=== PATIENT | female | born 1985 | race Caucasian/White ===

== ENCOUNTER 2020-02-25 05:01 | Inpatient (IN) | payer OTHER, SELFPAY ==
[2020-02-25] VITALS (52 sets, daily range): BP systolic 110–143; BP diastolic 60–99; PULSE 72–108; RESP 14–16; TEMP 36.4–37; O2SAT 77–100; BMI 28.2
--- NOTE | 2020-02-25 05:25 | LDADM ---
This patient, Theresa Faustin, was admitted to Labor/Delivery/Recovery 106 on 02/25/20 at 05:01. Plans for labor, pain management and were discussed with patient. Patient/family oriented to hospital policies and general routines including ID bracelet, bed and alarms, visiting hours, pain management, procedures, bathroom and other care routines, personal items, smoking policy, room service/diet and guest tray routines, security routines, and visiting hours. Patient/Family are encouraged to report perceived risks to care and to ask questions if they do not understand what they are told or what they should do. See OBIX for further documentation.
[2020-02-25] MEDS: LACTATED RINGERS 1,000 ML 125 ML IV CONT ×2 (05:47→09:42)
[2020-02-25] MEDS: OXYTOCIN 30 UNITS/NS 500 ML 30 UNITS/500 ML BAG IV CONT (05:47)
[2020-02-25 05:52] LABS: Basophils Percent Auto 0.2 % (0.2-1.2); Eosinophils Absolute Auto 0.2 K/mm3 (0-0.3); Eosinophils Percent Auto 2.7 % (0-4.4); Hemoglobin 12.7 g/dL (12.0-15.0); Immature Granulocyte Absolute 0.04 K/mm3 (0.00-0.031); Immature Granulocyte Percent A 0.5 % (0-0.5); Lymphocytes Absolute Auto 2.46 K/mm3 (0.9-3.2); Lymphocytes Percent Auto 27.9 % (18.3-44.2); Mean Corpuscular HGB Conc 33.4 g/dl (32-36); Mean Corpuscular Hemoglobin 28.9 pg (26-34); Mean Corpuscular Volume 86.6 fl (80-100); Mean Platelet Volume 11.1 fl (7.4-10.4); Monocytes Absolute Auto 0.9 K/mm3 (0.1-0.6); Monocytes Percent Auto 9.7 % (2.6-8.5); Neutrophils Absolute Auto 5.2 K/mm3 (1.3-6.7); Platelet Count Result 212 k/mm3 (150-375); Red Blood Count 4.39 M/mm3 (4.2-5.4); Red Cell Distribution Width 16.8 % (11.5-14.5); White Blood Count 8.8 K/mm3 (4.5-10.0)
--- NOTE | 2020-02-25 06:10 | P.PNAN_ITS ---
Anes - Eval Pre Procedure Procedure: labor epidural Date/Time: 02/25/20 06:10 Surgeon: marline Preop Diagnosis: ABD pain with contractions Pre Op Diagnosis: IOL Patient Data Age: 34 Gender: F Height: 5 ft 2 in Weight: 70 kg Last Vital Signs Pulse 81 02/25/20 06:00 BP 122/94 H 02/25/20 06:00 Allergies Allergy/AdvReac Type Severity Reaction Status Date / Time Sulfa (Sulfonamide Allergy Unknown Hives Verified 02/02/20 11:34 Antibiotics) Home Medications Medication Instructions Recorded Confirmed Type PNV cmb#95-ferrous fumarate-FA 1 tablet PO DAILY 02/02/20 02/02/20 History [] cetirizine [Zyrtec] 10 mg PO DAILY 02/02/20 02/02/20 History ferrous sulfate 325 mg PO DAILY 02/02/20 02/02/20 History sertraline [Zoloft] 50 mg PO DAILY 02/02/20 02/02/20 History Laboratory Tests 02/25/20 02/25/20 05:37 05:37 WBC 8.8 K/mm3 K/mm3 (4.5-10.0) RBC 4.39 M/mm3 M/mm3 (4.2-5.4) Hgb 12.7 g/dL g/dL (12.0-15.0) Hct 38.0 % % (37.0-47.0) MCV 86.6 fl fl (80-100) MCH 28.9 pg pg (26-34) MCHC 33.4 g/dl g/dl (32-36) RDW 16.8 % H % (11.5-14.5) Plt Count 212 k/mm3 k/mm3 (150-375) MPV 11.1 fl H fl (7.4-10.4) Immature Gran % (Auto) 0.5 % % (0-0.5) Neut % (Auto) 59.0 % % (45.5-73.1) Lymph % (Auto) 27.9 % % (18.3-44.2) [place] % (Auto) 9.7 % H % (2.6-8.5) Eos % (Auto) 2.7 % % (0-4.4) Baso % (Auto) 0.2 % % (0.2-1.2) Lymph # (Auto) 2.46 K/mm3 K/mm3 (0.9-3.2) [place] # (Auto) 0.9 K/mm3 H K/mm3 (0.1-0.6) Eos # (Auto) 0.2 K/mm3 K/mm3 (0-0.3) Baso # (Auto) 0.0 K/mm3 K/mm3 (0.0-0.1) Abs Immat Gran (auto) 0.04 K/mm3 H K/mm3 (0.00-0.031) Absolute Neuts (auto) 5.2 K/mm3 K/mm3 (1.3-6.7) Absolute Nucleated RBC 0.0 K/mm3 K/mm3 (0.0-0.012) Nucleated RBC % 0.0 % % (0.0-0.2) RPR Pending Patient hx anesthesia problems: none Family hx anesthesia problems: none PMFSH Past Medical History Medical History (Updated 02/25/20 @ 06:12 by Julian Booth CRNA) Anemia Anxiety Asthma Family History Family History Mother Family history of thyroid disease Hypertension Father Hypertension Family history of gastrointestinal disorder Social History Social History Smoking status: Never smoker Second hand tobacco smoke exposure: No Smoking end date: 10/07/12 Alcohol intake: current Substance use: never Spiritual care concerns: No Exam Day of Procedure 02/25/20 06:10 Patient weight: normal Airway: Mallampati scale class II Neurological: alert and oriented
[2020-02-25 06:43] LABS: Rapid Plasma Reagin Non-Reactive (NonReactive)
--- NOTE | 2020-02-25 08:13 | WPDOBADMIT ---
Obstetrics - Admit Note Admission Note: record reviewed. Additions to the history and/or subsequent changes in the physical findings follow. 34 y/o at 39 2/7 weeks with favorable cervix, here desiring induction of labor. GBS neg. essentially uncomplicated. AVSS NST reactive TOCO: contractions irregularly ABD soft, nontender, gravid, vertex EXT nontender Cervix 4/50/-2. AROM with clear fluid. Vertex. A: IUP at 39 2/7 weeks here for induction. P: Oxytocin. Anticipate .
--- NOTE | 2020-02-25 11:48 | PM.OBPRVD ---
OB - Delivery Note Procedure Delivery date: 02/25/20 Procedure: Induction of labor with Induction method: AROM and per pitocin protocol Delivery monitor: external FHT and external uterine Route of delivery: Laceration description: Perineal - 2nd Degree Delivery repair: vicryl (3-0) Specimen: Yes (cord blood) Estimated blood loss (mL): 210 Anesthesia type: Epidural Disposition: PACU Complications: None Narrative: 34 y/o at 39 2/7 weeks gestation who presented to the hospital for induction of labor. Oxytocin was administered intravenously. Amniotomy was performed with return of clear fluid. She received an epidural for pain control. Her labor progressed and her cervix dilated completely. She pushed with good effort and delivered the infant's head to the perineum. A loose nuchal cord was splinted and the body delivered. The cord was reduced. The nose and mouth were bulb suctioned. After a delay, the cord was clamped and cut. The infant was handed off the field. Cord blood was collected. The placenta delivered spontaneously and was grossly normal in appearance. The usual 3 vessel cord was noted. A second degree midline perineal laceration was sustained. This was reapproximated using 3 0 Vicryl in the usual layered fashion. A right-sided periurethral laceration was repaired with two interrupted sutures of the same material. Excellent hemostasis resulted as did excellent reapproximation of the normal anatomy. Needle and instrument counts were correct. The patient was taken to recovery room in stable condition. The went to the nursery in stable condition. I was present and scrubbed for the entire delivery. Baby Date of : 02/25/20 Time of : 11:16 Weeks of gestation at delivery: 39 Infant gender: Male presentation: vertex position: Left Occiput Anterior Placenta delivery description: Spontaneous and Normal Configuration cord vessel description: 3 Vessels and Nuchal Cord score one minute: 9 score five minutes: 9
--- NOTE | 2020-02-25 11:52 | PM.OBDSVD ---
DS: Admitting Diagnosis Admitting Diagnosis Admitting Diagnosis: IUP at 39 2/7 weeks Favorable cervix <Joni Holland MD - Last Filed: 03/14/20 12:27> DS: Discharge Diagnosis Discharge Diagnosis (1) (normal spontaneous vaginal delivery): Code(s): O80 - Encounter for full-term uncomplicated delivery <Joni Holland MD - Last Filed: 03/14/20 12:27> Status: Acute <Joni Holland MD - Last Filed: 03/14/20 12:27> OB - DS: Summary OB Procedures : None <Rashid Benoit MD - Last Filed: 02/27/20 06:45> OB Procedures Intrapartum: Spontaneous Vag Delivery <Rashid Benoit MD - Last Filed: 02/27/20 06:45> OB Procedures: : None <Rashid Benoit MD - Last Filed: 02/27/20 06:45> Time Spent with Patient Time attestation: Total time spent providing and/or coordinating discharge services: <Joni Holland MD - Last Filed: 03/14/20 12:27> DS: Data Data Completed and Pending Labs on day of discharge: Labs from last 24 hours 02/25/20 02/25/20 02/25/20 05:37 05:37 05:37 WBC 8.8 RBC 4.39 Hgb 12.7 Hct 38.0 MCV 86.6 MCH 28.9 MCHC 33.4 RDW 16.8 H Plt Count 212 MPV 11.1 H Immature Gran % (Auto) 0.5 Neut % (Auto) 59.0 Lymph % (Auto) 27.9 [place] % (Auto) 9.7 H Eos % (Auto) 2.7 Baso % (Auto) 0.2 Lymph # (Auto) 2.46 [place] # (Auto) 0.9 H Eos # (Auto) 0.2 Baso # (Auto) 0.0 Abs Immat Gran (auto) 0.04 H Absolute Neuts (auto) 5.2 Absolute Nucleated RBC 0.0 Nucleated RBC % 0.0 RPR Non-reactive Blood Type O Positive Antibody Screen Negative <Joni Holland MD - Last Filed: 03/14/20 12:27> Discharge Plan Discharge Attending physician on discharge: Joni Holland <Joni Holland MD - Last Filed: 03/14/20 12:27> Joni Holland <Rashid Benoit MD - Last Filed: 02/27/20 06:45> Discharging Clinician: Joni Holland <Joni Holland MD - Last Filed: 03/14/20 12:27> Joni Holland <Rashid Benoit MD - Last Filed: 02/27/20 06:45> Patient Disposition: Home, Self-Care <Joni Holland MD - Last Filed: 03/14/20 12:27> Activity: pelvic rest <Joni Holland MD - Last Filed: 03/14/20 12:27> pelvic rest <Rashid Benoit MD - Last Filed: 02/27/20 06:45> Diet: regular <Joni Holland MD - Last Filed: 03/14/20 12:27> regular <Rashid Benoit MD - Last Filed: 02/27/20 06:45> Discharge Instructions: Call or return if temperature above 100.4? F, increased abdominal pain, increased vaginal bleeding or any new problems. Education: Mom and Baby Guide Given to: Mother Follow-Up: Call your delivering provider's office for an appointment to be seen in: 4-6 weeks Mom and baby should come to the [facility] for the follow-up appointment. Appointment Date/Time: February 29, 2020 at 8:00 am What to expect at your follow-up visit: Physical Assessment Call [phone] if you are unable to keep your appointment time. BREAST CARE: 1. Wear a snug supportive bra. 2. For engorgement discomfort: Breast Feeding: A. Apply warm moist washcloths B. Express milk as needed to relieve engorgement C. Wear loose clothing 3. For sore nipples: A. Identify correct latch-on B. Apply warm moist washcloths before and after nursing C. Air dry nipples after nursing D. May apply Lansinoh cream to nipples EPISIOTOMY/PERINEAL CARE: 1. Until bleeding stops, use your miguel bottle after urinating 2. Change your pad frequently throughout the day 3. You may take sitz baths several times a day (fill your bathtub with warm water and soak for 20 minutes.) Do NOT bathe in the water 4. No tub baths until seen by your physician - You may shower ACTIVITY: 1. Rest as much as possible. 2. Do not exercise or li
--- NOTE | 2020-02-25 16:03 | PC.NURSE ---
Addendum entered by Julian Martinez RN 02/25/20 16:05: Actual time of admission was 1500 Original Note: PT arrived on unit via wheelchair accompanied by . PT taken to room 287 and oriented to room and surroundings. PT introductions made and plan of care discussed per post , pain management, breast feeding, daily care activities. Welcome packet reviewed and discussed. PT verbalized understanding of such care.
[2020-02-25] MEDS: DOCUSATE SODIUM 100 MG CAPSULE PO (17:32)
[2020-02-25] MEDS: IBUPROFEN 600 MG TABLET PO (17:32)
[2020-02-25] MEDS: LANOLIN (LANSINOH) 7.5 GM CREAM 1 APPLIC TOPICAL (17:33)
[2020-02-25] MEDS: WITCH HAZEL 40 PADS 1 PAD TOPICAL (17:34)
[2020-02-25] MEDS: DIBUCAINE 1% OINTMENT 30 GM TUBE 1 APPLIC TOPICAL (17:35)
[2020-02-25] MEDS: BENZOCAINE 20% AER SPR (*SP) 56 GM CAN 1 SPRAY TOPICAL (17:35)
[2020-02-26] MEDS: IBUPROFEN 600 MG TABLET PO ×3 (00:41→16:45)
[2020-02-26] MEDS: SERTRALINE HCL 50 MG TABLET PO (00:41)
[2020-02-26 04:55] LABS: Hematocrit 33.2 % (37.0-47.0); Hemoglobin 11.3 g/dL (12.0-15.0)
--- NOTE | 2020-02-26 07:30 | WPDANLDPN2 ---
Anes-Prog Note L&D Date/Time: 02/26/20 07:30 Comfortable throughout: labor and delivery Neuraxial method: epidural Epidural/Spinal procedure site: clean & non-tender Neuro status: Neuro function grossly intact. Cardiovascular status: normal Respiratory status: normal Airway patency: baseline Mental status: baseline Post-Op hydration status: normal Vital Signs: Last Vital Signs Temp 36.4 C 02/25/20 18:45 Pulse 82 02/25/20 18:45 Resp 14 02/25/20 18:45 BP 123/93 H 02/25/20 18:45 Pulse Ox 100 02/25/20 18:45 I/O: Intake & Output 02/25/20 02/25/20 02/26/20 15:59 23:59 07:59 Intake Total 1000 500 Output Total 100 Balance 900 500 Post-procedural complaints: none Patient feedback: Patient satisfied with anesthetic care.
--- NOTE | 2020-02-26 07:54 | PM.OBPNVD ---
OB - PN: Subj Subjective Date/time seen: 02/26/20 07:54 Patient comments: no complaints, pain well controlled and tolerating diet [place] feeding status: exclusively breast feeding Narrative: patient doing well this AM. No complaints. Pain is well controlled. She reports minimal bleeding. She is ambulating and voiding without difficulty. She is tolerating PO. She denies N/V, fever, chills. OB - PN: Obj Data Labs CBC & Chem 7: 02/26/20 04:14 Labs: Laboratory Results - last 24 hr 02/26/20 04:14 Hgb 11.3 L Hct 33.2 L OB - PN A/P Plan day: 1 Plan: routine care Comments: patient doing well H/H stable plan for infant circumcision today continue routine care Time Spent With Patient Time: Total time spent is greater than 50% in coordination of care (as documented) at patient's floor/unit and/or counseling patient: Time with patient: less than 15 minutes Review of Systems Review of Systems: All systems reviewed & are unremarkable except as noted in HPI and below Exam Const: General: comfortable and no acute distress Resp: Effort & Inspection: normal respiratory effort Cardio: Rate: regular rate GI: GI Palp: Yes Soft to palpation and No Tenderness to palpation present (GI) Auscultation: normal bowel sounds Other: fundus firm and below umbilicus. Psych: Affect: normal affect
[2020-02-26 08:15] VITALS: BP 131/88; PULSE 77; RESP 16; TEMP 36.9; O2SAT 100
[2020-02-26] MEDS: DOCUSATE SODIUM 100 MG CAPSULE PO ×2 (09:19→16:45)
[2020-02-26] MEDS: MULTIVIT/MIN/PREN/FOL AC/IRON TABLET 1 TAB PO (09:19)
--- NOTE | 2020-02-26 16:20 | PC.NURSE ---
Mother is able to independently latch infant with appropriate positioning/alignment. She denies any nipple discomfort, is feeding as required and waking to feed if needed. Mother reports concerns is sleepy and need to be awoken for feedings, reviewed this is normal feeding pattern. Advised to wake every three hours and stimulate during feedings to keep awake and nursing. is currently meeting outcomes for weight, output, jaundice and feeding frequencies. Reviewed infant feeding cues, frequencies, duration of feedings, feeding elimination flow sheet, and signs of adequate intake. Demonstrated stimulation techniques to wake infant for feeding. Reviewed transition to breast milk, signs of adequate intake, and engorgement/relief. Nipple care reviewed. Instructed mother to call out for RN assistance if she is unable to latch infant for feeding or she has discomfort with nursing. Instructed feeding should be initiated three hours from start of last feeding or if feeding cues are noted before. Mother voiced understanding of information shared.
[2020-02-26 21:20] VITALS: BP 118/83; PULSE 80; RESP 13; TEMP 36.4; O2SAT 99
[2020-02-27] MEDS: ACETAMINOPHEN 325 MG TABLET 650 MG PO (03:40)
[2020-02-27] MEDS: SERTRALINE HCL 50 MG TABLET PO (03:46)
[2020-02-27 09:15] VITALS: BP 125/89; PULSE 100; RESP 18; TEMP 36.9
[2020-02-27] MEDS: MULTIVIT/MIN/PREN/FOL AC/IRON TABLET 1 TAB PO (10:43)
[2020-02-29 08:33] VITALS: BP 122/92; PULSE 88; RESP 22
== END 2020-02-27 11:46 | disposition home or self-care (01) | DRG 807 ==
LOC: ANHLDR 11:53 → ANHOB2 02-27 11:11 → ANHLDR 03-02 07:51 → ANHOB2 03-02 07:51
PROVIDERS: Admitting Provider Obstetrics & Gynecology; PCP Internal Medicine; Visit Provider Student in an Organized Health Care Education/Training Program
DX: O71.82 Other specified trauma to perineum and vulva (principal); Z37.0 Single live birth; Z3A.39 39 weeks gestation of pregnancy
CPT/HCPCS: 36415; 85014; 85018; 85025; 86592; 86850; 86900; 86901; A9270; J2590; J2795; J3010; J7120

== ENCOUNTER 2020-03-02 11:59 | Emergency (ER) | payer OTHER, SELFPAY ==
[2020-03-02 12:04] VITALS: BP 137/93; PULSE 126; RESP 16; TEMP 38.2; O2SAT 98
--- NOTE | 2020-03-02 12:13 | ED.GENADULT ---
HPI - General Adult General Chief complaint: [employer] Stated complaint: post delivery/back pain/fever Time Seen by Provider: 03/02/20 12:12 Source: patient Mode of arrival: ambulatory Limitations: no limitations History of Present Illness HPI narrative: Patient is a 34-year-old female G2, P2 who had a vaginal delivery December 25 of a healthy baby boy who presents for evaluation of fever. Patient reports fever of 101 Fahrenheit at home, general malaise. Patient reports she is having normal amount of bloody discharge from the vagina, some intermittent cramping of the abdominal region and lower abdomen. Patient reports some mild dysuria and back pain. No rashes. No lower extremity swelling. No rhinorrhea, cough or shortness of breath. Related Data Home Medications Medication Instructions Recorded Confirmed [id number] fumarate-FA tablet PO DAILY 03/02/20 [] fluticasone propionate INTRANASAL DAILY 03/02/20 sertraline mg DAILY 03/02/20 Allergies Allergy/AdvReac Type Severity Reaction Status Date / Time Sulfa (Sulfonamide Allergy Intermediate Hives / Verified 03/02/20 12:09 Antibiotics) [place] Review of Systems Review of Systems: Narrative: CONSTITUTIONAL: Reports fever and chills EYES: Denies visual changes, redness, or discharge. ENT: Denies rhinorrhea, congestion, sore throat, or otalgia. CARDIOVASCULAR: Denies chest pain, palpitations, or edema. RESPIRATORY: Denies cough or dyspnea. GASTROINTESTINAL: Reports lower abdominal pain, denies nausea, vomiting or diarrhea GENITOURINARY: Reports dysuria and vaginal bleeding SKIN: Denies rash or itching. MUSCULOSKELETAL: Reports mild back pain, reports myalgias NEUROLOGIC: Denies headache, numbness, or weakness. . [facility] Past Medical History Medical History (Updated 03/02/20 @ 13:43 by Estella Boswell MD) Anxiety Asthma Depression Surgical History Surgical History (Updated 03/02/20 @ 12:30 by Estella Boswell MD) No pertinent past surgical history Social History Social History (Updated 03/02/20 @ 12:30 by Estella Boswell MD) Smoking status: Former smoker Alcohol intake: never Substance use: never Living arrangements: with family Gender identity (if verbalized by the patient): Female Exam Narrative: Exam Narrative: GENERAL: Awake, alert, conversant, anxious appearing, tearful HEAD: Normocephalic, atraumatic. EYES: PERRLA and EOMI. ENT: Nares clear, no rhinorrhea or epistaxis. Mucous membranes moist. NECK: Supple. CHEST: No respiratory distress, breathing even and non labored HEART: Tachycardic rate, sinus rhythm ABDOMEN:Non distended, mild suprapubic tenderness, fundus is palpable below the umbilicus, no rebound or guarding : Labia majora and minora normal without lesions. Suture sites present at the urethra and perineum, clean/dry/intact. No adnexal tenderness or fullness bilaterally. No mucoid discharge present. EXTREMITIES: Normal range of motion. No edema. SKIN: Warm, dry, no rash. NEURO:No focal deficits. Alert and oriented x3 Course Vital Signs Vital signs: Vital Signs Temperature 38.2 C H 03/02/20 12:04 Pulse Rate 126 H 03/02/20 12:04 Respiratory Rate 16 03/02/20 12:04 Blood Pressure 137/93 H 03/02/20 12:04 Pulse Oximetry 98 03/02/20 12:04 Temperature 37.2 C 03/02/20 13:18 Pulse Rate 126 H 03/02/20 12:04 Respiratory Rate 16 03/02/20 12:04 Blood Pressure 137/93 H 03/02/20 12:04 Pulse Oximetry 98 03/02/20 12:04 Medical Decision Making MDM Narrative Medical decision making narrative: Patient presented for evaluation of fever, dysuria. At the time of initial assessment, ABCs are intact. Vital signs are notable for tachycardia, fever. Patient with concern for sepsis, thus was given IV fluids, antipyretic. Patient is not hypotensive, no sign of severe sepsis or septic shock. Given recent diagnosis, patient may have UTI, pyelonephritis, endometritis. Laboratory re
[2020-03-02] MEDS: SODIUM CHLORIDE 0.9% IV 1,000 ML 999 ML IV CONT (12:20)
[2020-03-02] MEDS: ACETAMINOPHEN 500 MG TABLET 1000 MG PO (12:21)
[2020-03-02 12:37] LABS: Basophils Percent Auto 0.2 % (0.2-1.2); Eosinophils Absolute Auto 0.2 K/mm3 (0-0.3); Eosinophils Percent Auto 1.5 % (0-4.4); Hematocrit 39.5 % (37.0-47.0); Hemoglobin 13.1 g/dL (12.0-15.0); Immature Granulocyte Absolute 0.04 K/mm3 (0.00-0.031); Immature Granulocyte Percent A 0.3 % (0-0.5); Lymphocytes Absolute Auto 0.81 K/mm3 (0.9-3.2); Lymphocytes Percent Auto 6.3 % (18.3-44.2); Mean Corpuscular HGB Conc 33.2 g/dl (32-36); Mean Corpuscular Hemoglobin 29.2 pg (26-34); Mean Platelet Volume 9.7 fl (7.4-10.4); Monocytes Percent Auto 7.4 % (2.6-8.5); Neutrophils Absolute Auto 10.9 K/mm3 (1.3-6.7); Neutrophils Percent Auto 84.3 % (45.5-73.1); Platelet Count Result 276 k/mm3 (150-375); Red Blood Count 4.49 M/mm3 (4.2-5.4); Red Cell Distribution Width 16.6 % (11.5-14.5); White Blood Count 12.9 K/mm3 (4.5-10.0)
[2020-03-02 12:40] LABS: Add Urine Microscopic? YES; Appearance Urine Cloudy (Clear); Bilirubin Urine Negative (Negative); Blood Urine 3+ (Negative); Color Urine Yellow (Yellow); Glucose Urine UA Negative (Negative); Ketones Urine Negative (Negative); Leukocyte Esterase Ur 3+ LEU/UL (Negative); Mucus Urine Rare /lpf; Nitrate Urine Negative (Negative); Protein Urine 1+ mg/dL (Negative); RBC Urine 21-50 /hpf (0-2); Squamous Epithelial Cell Urine Moderate /hpf (Few); Urobilinogen Urine Negative mg/dL (<2.0); WBC Urine >75 /hpf
[2020-03-02 12:52] LABS: Lactic Acid Reflex 0.7 mmol/L (0.7-2.1)
[2020-03-02 13:18] VITALS: TEMP 37.2
[2020-03-02 13:33] LABS: Alanine Aminotransferase 39 U/L (4-35); Albumin Level 3.8 g/dL (3.5-5.1); Alkaline Phosphatase 141 U/L (38-126); Aspartate Amino Transferase 39 U/L (14-36); Bilirubin,Total 0.2 mg/dL (0.2-1.3); Blood Urea Nitrogen 11 mg/dL (7-17); CRP 2.5 mg/dL (<1.0); Calcium 8.4 mg/dL (8.4-10.2); Carbon Dioxide 21 mmol/L (22-30); Chloride 108 mmol/L (98-107); Estimated CRCL calculation 78 ml/min; Estimated Glomerular Filt Rate > 60; Glucose 89 mg/dL (65-105); Sodium 135 mmol/L (137-145)
--- NOTE | 2020-03-02 13:55 | PC.NURSE ---
Breast pump provided due to engorgement. Instructions given on breast pump care and usage, nipple care, and collection and storage of breast milk. Assessed patient for correct flange size, placement and draw. Mother reports she is comfortable with pump use, she just needs to pump due to timing from last feeding. Patient verbalizes and demonstrates understanding of instructions.
[2020-03-02 14:43] VITALS: BP 127/92; PULSE 90; RESP 20; O2SAT 100
== END 2020-03-02 14:45 | disposition home or self-care (01) ==
PROVIDERS: Emergency Provider Emergency Medicine; PCP Internal Medicine
DX: N12 Tubulo-interstitial nephritis, not specified as acute or chronic (principal); F41.9 Anxiety disorder, unspecified; F32.9 Major depressive disorder, single episode, unspecified; J45.909 Unspecified asthma, uncomplicated; Z87.891 Personal history of nicotine dependence
CPT/HCPCS: 36415; 80053; 81001; 83605; 85025; 86140; 87040; 87077; 87086; 87088; 87186; 96361; 96365; 99284; A9270; J0696; J7030

== ENCOUNTER 2021-11-23 13:02 | Outpatient (RCR) | payer OTHER, SELFPAY ==
--- NOTE | ~2021-11-23 | US_ITS ---
EXAMINATION: US OB limited DATE: 11/23/2021 14:03 INDICATION: Hypertension during post dates third trimester . TECHNIQUE: Real-time ultrasound of the pelvis was performed. The interpreting radiologist was not pre sent for the study. COMPARISON: None. FINDINGS: There is a single living fetus in vertex presentation. The placenta is anterior. heart rate is 137 beats per minute (bpm). The amniotic fluid index is 11.1 cm, which is normal (5th%-95%: 7.1-21.4 cm at 40 weeks estimated gestational age). IMPRESSION: 1. Single living fetus in vertex presentation with heart rate of 137 bpm. 2. Normal amniotic fluid index of 11.1 cm. Reviewed, dictated and finalized at location A. IGN [employer]CH[employer] TRADER IMPRESSION: 1. Single living fetus in vertex presentation with heart rate of 137 bpm . 2. Normal amniotic fluid index of 11.1 cm.
[2021-11-23 14:20] VITALS: BP 120/85; PULSE 101
== END 2022-02-12 08:59 | disposition home or self-care (01) ==
LOC: ANHOBOP 13:02
PROVIDERS: PCP Internal Medicine; Visit Provider Obstetrics & Gynecology
DX: O26.893 Other specified pregnancy related conditions, third trimester (principal); R03.0 Elevated blood-pressure reading, without diagnosis of hypertension; Z3A.40 40 weeks gestation of pregnancy
CPT/HCPCS: 59025; 76815

== ENCOUNTER 2021-11-26 02:56 | Inpatient (IN) | payer OTHER, SELFPAY ==
[2021-11-26] VITALS (60 sets, daily range): BP systolic 84–145; BP diastolic 43–106; PULSE 65–104; RESP 16–20; TEMP 36.4–37.1; O2SAT 97–100; BMI 27.4
[2021-11-26] MEDS: LACTATED RINGERS 1,000 ML 999 ML IV CONT ×2 (03:48→05:46)
[2021-11-26 03:50] LABS: Basophils Absolute Auto 0.1 K/mm3 (0.0-0.1); Basophils Percent Auto 0.5 % (0.2-1.2); Eosinophils Absolute Auto 0.3 K/mm3 (0-0.3); Eosinophils Percent Auto 3.5 % (0-4.4); Hematocrit 36.3 % (37.0-47.0); Hemoglobin 11.9 g/dL (12.0-15.0); Immature Granulocyte Absolute 0.04 K/mm3 (0.00-0.031); Immature Granulocyte Percent A 0.4 % (0-0.5); Lymphocytes Absolute Auto 2.34 K/mm3 (0.9-3.2); Mean Corpuscular HGB Conc 32.8 g/dl (32-36); Mean Corpuscular Hemoglobin 29.1 pg (26-34); Mean Corpuscular Volume 88.8 fl (80-100); Monocytes Percent Auto 9.8 % (2.6-8.5); Neutrophils Percent Auto 61.8 % (45.5-73.1); Platelet Count Result 240 k/mm3 (150-375); Red Blood Count 4.09 M/mm3 (4.2-5.4); White Blood Count 9.8 K/mm3 (4.5-10.0)
--- NOTE | 2021-11-26 04:16 | WPDANESEPP ---
Anes - Eval Pre Procedure Procedure: labor epidural Date/Time: 11/26/21 04:16 Surgeon: kodi Preop Diagnosis: pain during labor Pre Op Diagnosis: Contractions Patient Data Age: 36 Gender: F Height: Weight: Last Vital Signs Pulse 73 11/26/21 04:16 BP 113/79 11/26/21 04:16 Allergies Allergy/AdvReac Type Severity Reaction Status Date / Time Sulfa (Sulfonamide Allergy Intermediate Hives Verified 08/25/21 15:58 Antibiotics) Home Medications Medication Instructions Recorded Confirmed Type [id number] fumarate-FA tablet PO DAILY 03/02/20 History [] acetaminophen 500 mg PO Q6H PRN #30 cap 03/02/20 Rx cephalexin [Keflex] 500 mg PO Q8H 10 Days #30 cap 03/02/20 Rx fluticasone propionate INTRANASAL DAILY 03/02/20 History sertraline mg DAILY 03/02/20 History No Home Medications 11/01/20 11/01/20 History Laboratory Tests 11/26/21 11/26/21 11/26/21 03:43 03:43 03:43 WBC 9.8 K/mm3 K/mm3 (4.5-10.0) RBC 4.09 M/mm3 L M/mm3 (4.2-5.4) Hgb 11.9 g/dL L g/dL (12.0-15.0) Hct 36.3 % L % (37.0-47.0) MCV 88.8 fl fl (80-100) MCH 29.1 pg pg (26-34) MCHC 32.8 g/dl g/dl (32-36) RDW 13.0 % % (11.5-14.5) Plt Count 240 k/mm3 k/mm3 (150-375) MPV 10.0 fl fl (7.4-10.4) Immature Gran % (Auto) 0.4 % % (0-0.5) Neut % (Auto) 61.8 % % (45.5-73.1) Lymph % (Auto) 24.0 % % (18.3-44.2) [place] % (Auto) 9.8 % H % (2.6-8.5) Eos % (Auto) 3.5 % % (0-4.4) Baso % (Auto) 0.5 % % (0.2-1.2) Lymph # (Auto) 2.34 K/mm3 K/mm3 (0.9-3.2) [place] # (Auto) 1.0 K/mm3 H K/mm3 (0.1-0.6) Eos # (Auto) 0.3 K/mm3 K/mm3 (0-0.3) Baso # (Auto) 0.1 K/mm3 K/mm3 (0.0-0.1) Abs Immat Gran (auto) 0.04 K/mm3 H K/mm3 (0.00-0.031) Absolute Neuts (auto) 6.0 K/mm3 K/mm3 (1.3-6.7) Absolute Nucleated RBC 0.0 K/mm3 K/mm3 (0.0-0.012) Nucleated RBC % 0.0 % % (0.0-0.2) Sodium Pending Potassium Pending Chloride Pending Carbon Dioxide Pending Anion Gap Pending BUN Pending Creatinine Pending Estim Creat Clear Calc Pending Estimated GFR Pending Glucose Pending Calcium Pending Total Bilirubin Pending AST Pending ALT Pending Alkaline Phosphatase Pending Total Protein Pending Albumin Pending RPR Pending Patient hx anesthesia problems: none Family hx anesthesia problems: none Results Review: All pre-operative results and documents have been reviewed as part of the pre-operative evaluation. [facility] Past Medical History Medical History (Updated 08/25/21 @ 15:58 by Isaiah Mrogan) Anemia Anxiety Anxiety Asthma Asthma Depression Surgical History Surgical History (Updated 08/25/21 @ 15:58 by Isaiah Morgan) No pertinent past surgical history Family History Family History Mother Family history of thyroid disease Hypertension Father Hypertension Family history of gastrointestinal disorder Social History Social History (System 08/25/21 @ 15:58 by Isaiah Morgan) Smoking status: Former smoker Tobacco type: cigarettes Second hand tobacco smoke exposure: No Smoking end date: 10/07/13 Alcohol intake: never Substance use: never Gender identity (if verbalized by the patient): Female Spiritual care concerns: No Exam Day of Procedure 11/26/21 04:16
[2021-11-26] MEDS: ONDANSETRON INJ 4 MG/2 ML VIAL IV PUSH (04:29)
[2021-11-26 04:51] LABS: Alanine Aminotransferase 10 U/L (4-35); Albumin Level 3.1 g/dL (3.5-5.1); Alkaline Phosphatase 148 U/L (38-126); Anion Gap 5 mmol/L (8-16); Aspartate Amino Transferase 21 U/L (14-36); Bilirubin,Total 0.1 mg/dL (0.2-1.3); Blood Urea Nitrogen 7 mg/dL (7-17); Carbon Dioxide 22 mmol/L (22-30); Chloride 106 mmol/L (98-107); Estimated Glomerular Filt Rate > 60; Glucose 88 mg/dL (65-110); Sodium 133 mmol/L (137-145)
[2021-11-26] MEDS: OXYTOCIN 30 UNITS/NS 500 ML 30 UNITS/500 ML BAG IV CONT (05:46)
--- NOTE | 2021-11-26 06:43 | WPDHPUPDATE1 ---
History and Physical Update Update Date/Time: 11/26/21 06:43 36 yo at 41w1d who presents with contractions. Pt has been having regular contractions throughout the night. She denies any vaginal bleeding or leakage of fluid. Her has been complicated by depression/anxiety on celexa. History and Physical has been reviewed, including an updated exam of the patient. There are NO changes in the patient's condition. Risks, benefits, and alternatives have been discussed and questions answered. Patient agrees to proceed with procedure. A/P: 36 yo at 41w1d who presents in labor admit to L&D routine admission orders labs wnl Rh+ GBS neg FHT cat 1 cvx 4cm regular ctx on toco expectant managemetn
--- NOTE | 2021-11-26 06:58 | PM.OBPRVD ---
OB - Delivery Note Procedure Delivery date: 11/26/21 Procedure: Patient pushed for a spontaneous vaginal delivery. The fetus was delivered atraumatically and placed on the maternal abdomen. The cord was clamped and cut after 1 minute of life. The cord was double clamped and cut and a segment of cord was collected for cord gases. Cord blood was collected for blood type and Coomb's testing. The placenta delivered spontaneously and was noted to be intact. The perineum was inspected and there was a 2nd degree perineal laceration. The laceration was repaired with 3-0 vicryl in the usual fashion. The uterus was firm and good hemostasis was noted. The patient and fetus were stable in the delivery room. Induction method: None Delivery augmentation: Pitocin Delivery monitor: External FHT Route of delivery: Episiotomy description: None Laceration Description: Perineal - 2nd Degree Delivery repair: vicryl Specimen: No Quantitative Blood Loss (ml): 200 Anesthesia type: Epidural Disposition: floor () Complications: No immediate complications [place] Baby Date of : 11/26/21 Time of : 06:32 Weeks of gestation at delivery: 41 Infant gender: Female Weight (pounds): 7 Weight (ounces): 1 presentation: vertex position: Right Occiput Anterior Placenta delivery description: Spontaneous Cord Vessel Description: 3 Vessels score one minute: 8 score five minutes: 8
[2021-11-26] MEDS: OXYTOCIN 30 UNITS/NS 500 ML 30 UNITS/500 ML BAG 125 UNITS IV CONT (07:02)
--- NOTE | 2021-11-26 07:30 | LDADM ---
This patient, Theresa Faustin, was admitted to Labor/Delivery/Recovery 106 on 11/26/21. Plans for labor, pain management and were discussed with patient. Patient/family oriented to hospital policies and general routines including ID bracelet, bed and alarms, visiting hours, pain management, procedures, bathroom and other care routines, personal items, smoking policy, room service/diet and guest tray routines, security routines, and visiting hours. Patient/Family are encouraged to report perceived risks to care and to ask questions if they do not understand what they are told or what they should do. See OBIX for further documentation.
[2021-11-26] MEDS: BENZOCAINE 20% AER SPR (*SP) 56 GM CAN 1 SPRAY TOPICAL (09:00)
[2021-11-26] MEDS: WITCH HAZEL 40 PADS 1 PAD TOPICAL (09:00)
[2021-11-26] MEDS: IBUPROFEN 600 MG TABLET PO ×3 (11:08→23:32)
[2021-11-26] MEDS: DOCUSATE SODIUM 100 MG CAPSULE PO (11:09)
[2021-11-26] MEDS: MULTIVIT/MIN/PREN/FOL AC/IRON TABLET 1 TAB PO (11:09)
--- NOTE | 2021-11-26 11:28 | OBPPTRN ---
1027-Patient transferred to post room #290 via wheelchair. Support person present. Oriented to unit, room, information board, rooming in, admission packet and security measures. Patient verbalizes understanding.
[2021-11-26] MEDS: CITALOPRAM HYDROBROMIDE 10 MG TABLET PO (21:01)
[2021-11-27 04:12] VITALS: BP 122/85; PULSE 70; RESP 16; TEMP 36.4; O2SAT 99
[2021-11-27] MEDS: ACETAMINOPHEN 325 MG TABLET 650 MG PO (04:13)
[2021-11-27 04:55] LABS: Hematocrit 32.1 % (37.0-47.0); Hemoglobin 10.5 g/dL (12.0-15.0)
--- NOTE | 2021-11-27 07:11 | WPDANLDPN2 ---
Anes-Prog Note L&D Date/Time: 11/27/21 07:11 Comfortable throughout: labor and delivery Neuraxial method: epidural Epidural/Spinal procedure site: clean & non-tender Neuro status: Neuro function grossly intact. Cardiovascular status: normal Respiratory status: normal Airway patency: baseline Mental status: baseline Post-Op hydration status: normal Vital Signs: Last Vital Signs Temp 36.4 C 11/27/21 04:12 Pulse 70 11/27/21 04:12 Resp 16 11/27/21 04:12 BP 122/85 11/27/21 04:12 Pulse Ox 99 11/27/21 04:12 Pain score (VAS): 10/16 I/O: Intake & Output 11/26/21 11/26/21 11/27/21 15:59 23:59 07:59 Intake Total 240 Output Total 188 Balance 52 Post-procedural complaints: none Patient feedback: Patient satisfied with anesthetic care.
[2021-11-27 07:15] LABS: Rapid Plasma Reagin Non-Reactive (NonReactive)
--- NOTE | 2021-11-27 07:28 | PM.OBDSVD ---
DS: Admitting Diagnosis Discharge Date 11/27/21 Admitting Diagnosis intrauterine at term OB - DS: Summary OB Procedures : None OB Procedures Intrapartum: Spontaneous Vag Delivery OB Procedures: : None Status at Discharge Functional status at discharge: independent ambulation Overall status at discharge: patient is back to baseline Time Spent with Patient Time attestation: Total time spent providing and/or coordinating discharge services: Time spent: Less than 30 minutes Exam Const: General: comfortable and no acute distress Resp: Effort & Inspection: normal respiratory effort Auscultation: clear to auscultation bilaterally Cardio: Rate: regular rate GI: GI Palp: Yes Soft to palpation Auscultation: normal bowel sounds Other: Fundus firm below umbilicus Psych: Appearance: grossly normal Mental Status: mental status grossly normal Affect: normal affect DS: Data Data Completed and Pending Labs on day of discharge: Labs from last 24 hours 11/27/21 11/26/21 04:00 03:43 Hgb 10.5 L Hct 32.1 L RPR Non-reactive Discharge Plan Discharge Discharging Clinician: Rashid Benoit Patient Disposition: Home, Self-Care Activity: as tolerated and pelvic rest Diet: regular Patient Instructions: Antibiotic Form, Vaginal Delivery (DC) Stand Alone Forms: General Discharge Information Follow-up/Referrals: Joni Holland MD [Physician] - Discharge Medications: New acetaminophen [Mapap (acetaminophen)] 325 mg Tablet 650 mg PO Q6H PRN (Reason: Mild Pain (1-3) Or Headache) Qty: 30 RF: 0 ibuprofen 600 mg Tablet 600 mg PO Q6H PRN (Reason: Cramping) Qty: 30 RF: 0 Continued citalopram 10 mg tablet 10 mg PO HS RF: 0 28-800 mg-mcg Tablet 1 tablet PO HS RF: 0 Date of admission: 11/26/21 02:56 Primary Care Provider: Jared Holman Admitting Provider: Joni Holland Attending physician on admission: Joni Holland Condition: Stable
[2021-11-27 08:00] VITALS: BP 130/85; PULSE 75; RESP 18; TEMP 36.6; O2SAT 100
--- NOTE | 2021-11-27 08:02 | PC.NURSE ---
0745 - Introductions were made and mother led the conversation with regards to her experience feeding her baby so far. Mother has experience two other children at length and prefers a position of sitting up and leaning over infant while . Mother states infant has been on/off the breast for all night. RN assesses latch that is less than 130-150 degrees, with top lip curled under and non nutritive sucking without swallow. Encouraged mother to detach infant. Nipple was misshaped. Reviewed positioning, latching effectively with good rocking motion nutritive sucking swallow ratios. Reminded parents to use good handwashing to prevent infection. Infant has had appropriate feedings in the past 24 hours and meets the outcomes for weight, output and jaundice. Mother states she feels confident to continue effectively her infant at home. Reviewed production of human milk, transition of milk, signs of adequate intake and engorgement prevention/relief and when to call the care provider using the mom and baby guide. Reviewed medications mother is taking with information provided by [facility], community resources and outpatient services as listed in the mom and baby guide/[facility] website. Reinforced watching for feeding cues with responsive feeding 8-12 times in 24 hours, watch for optimal latching, suck/swallowing and how to stimulate infant to initiate feeding three hours from the start of the last feeding. Mother voiced understanding of information shared. Mother is ready for baby to be assessed by the bulk coolers installer as has been requested to be brought to the nursery by Dat Lewis Reported to primary RN.
[2021-11-27] MEDS: MULTIVIT/MIN/PREN/FOL AC/IRON TABLET 1 TAB PO (08:23)
[2021-11-27] MEDS: IBUPROFEN 600 MG TABLET PO (08:23)
[2021-11-27] MEDS: DOCUSATE SODIUM 100 MG CAPSULE PO (08:23)
[2021-11-28 08:50] VITALS: BP 119/87; PULSE 88; RESP 16; TEMP 36.9; O2SAT 100
== END 2021-11-27 19:07 | disposition home or self-care (01) | DRG 807 ==
LOC: ANHOB2 11-27 12:37 → ANHLDR 11-28 08:42 → ANHOB2 11-28 08:42
PROVIDERS: Admitting Provider Student in an Organized Health Care Education/Training Program; PCP Internal Medicine; Visit Provider Student in an Organized Health Care Education/Training Program
DX: O99.02 Anemia complicating childbirth (principal); Z37.0 Single live birth; Z3A.41 41 weeks gestation of pregnancy; D64.9 Anemia, unspecified; O36.8330 Maternal care for abnormalities of the fetal heart rate or rhythm, third trimester, not applicable or unspecified; O70.1 Second degree perineal laceration during delivery
CPT/HCPCS: 36415; 80053; 85014; 85018; 85025; 86592; 86850; 86900; 86901; A9270; J2405; J2590; J2795; J7120

== ENCOUNTER 2022-08-29 08:14 | Outpatient (CLI) | payer OTHER, SELFPAY ==
[2022-08-29 18:46] LABS: Alanine Aminotransferase 16 U/L (6-35); Albumin Level 4.2 g/dL (3.5-5.1); Alkaline Phosphatase 61 U/L (38-126); Anion Gap 10 mmol/L (8-16); Aspartate Amino Transferase 37 U/L (14-36); Bilirubin,Total 0.5 mg/dL (0.2-1.3); Blood Urea Nitrogen 17 mg/dL (7-17); Calcium 8.5 mg/dL (8.4-10.2); Carbon Dioxide 26 mmol/L (22-30); Chloride 105 mmol/L (98-107); Cholesterol 175 mg/dL (0-200); Estimated Glomerular Filt Rate > 60; Glucose 75 mg/dL (65-110); HDL Direct 63 mg/dL; Potassium 4.1 mmol/L (3.4-5.0); Sodium 141 mmol/L (137-145); Triglycerides 66 mg/dL (<150)
[2022-08-29 18:57] LABS: LDL Cholesterol Direct 85 mg/dL
== END 2022-08-29 08:15 | disposition home or self-care (01) ==
LOC: ANHGOSHLAB 08:16
PROVIDERS: PCP Family Medicine; Visit Provider Family Medicine
DX: Z13.220 Encounter for screening for lipoid disorders (principal); Z13.29 Encounter for screening for other suspected endocrine disorder; Z13.228 Encounter for screening for other metabolic disorders
CPT/HCPCS: 36415; 80053; 80061; 84443

== ENCOUNTER 2023-01-04 13:02 | Outpatient (CLI) | payer OTHER, SELFPAY ==
--- NOTE | ~2023-01-04 | US_ITS ---
US breast RT limited INDICATION: Breast pain TECHNIQUE: Dedicated breasts breast ultrasound COMPARISON: No prior studies for comparison. FINDINGS: The breasts are composed of normal heterogeneous echotexture without focal solid or cystic mass. IMPRESSION: 1: Normal bilateral breast ultrasound. BI-RADS CATEGORY 1 - NEGATIVE Reviewed, dictated and finalized at location A.
== END 2023-01-04 13:03 | disposition home or self-care (01) ==
PROVIDERS: PCP Family Medicine; Visit Provider Obstetrics & Gynecology
DX: N64.4 Mastodynia (principal)
CPT/HCPCS: 76642

== ENCOUNTER 2023-04-25 10:13 | Outpatient (CLI) | payer OTHER, SELFPAY ==
[2023-04-25 10:42] LABS: Hematocrit 40.9 % (37.0-47.0); Hemoglobin 13.5 g/dL (12.0-15.0); Mean Corpuscular Hemoglobin 31.3 pg (26-34); Mean Corpuscular Volume 94.9 fl (80-100); Mean Platelet Volume 9.5 fl (7.4-10.4); Platelet Count Result 262 k/mm3 (150-375); Red Blood Count 4.31 M/mm3 (4.2-5.4); Red Cell Distribution Width 11.7 % (11.5-14.5); White Blood Count 7.1 K/mm3 (4.5-10.0)
[2023-04-25 10:57] LABS: Alanine Aminotransferase 15 U/L (6-35); Albumin Level 4.4 g/dL (3.5-5.1); Alkaline Phosphatase 48 U/L (38-126); Anion Gap 3 mmol/L (8-16); Aspartate Amino Transferase 23 U/L (14-36); Bilirubin,Total 0.4 mg/dL (0.2-1.3); Blood Urea Nitrogen 13 mg/dL (7-17); CRP < 0.5 mg/dL (<1.0); Calcium 8.5 mg/dL (8.4-10.2); Carbon Dioxide 30 mmol/L (22-30); Chloride 105 mmol/L (98-107); Estimated Glomerular Filt Rate > 60; Glucose 87 mg/dL (65-110); Potassium 3.8 mmol/L (3.4-5.0); Sodium 138 mmol/L (137-145)
[2023-04-25 11:33] LABS: Erythrocyte Sedimentation Rate 3 mm/hr (0-20)
[2023-04-30 10:48] LABS: Immunoglobulin A 267 mg/dL (47-310); TTG IGA AB <1.0 U/mL (<15.0)
== END 2023-04-25 10:14 | disposition home or self-care (01) ==
LOC: ANHLAB 10:14
PROVIDERS: PCP Family Medicine; Visit Provider Nurse Practitioner
DX: K52.9 Noninfective gastroenteritis and colitis, unspecified (principal); R10.9 Unspecified abdominal pain; R10.2 Pelvic and perineal pain
CPT/HCPCS: 36415; 80053; 82784; 84443; 85027; 85652; 86140; 86364

== ENCOUNTER 2023-05-24 00:26 | Day surgery (SDC) | payer OTHER, SELFPAY ==
[2023-05-01 11:20] VITALS: BMI 21.2
[2023-05-24 09:06] VITALS: BP 107/79; PULSE 87; RESP 19; TEMP 36.2; O2SAT 99
[2023-05-24] MEDS: LACTATED RINGERS 1,000 ML 150 ML IV CONT (09:19)
--- NOTE | 2023-05-24 09:25 | WPDANESEPPF ---
Anes - Initial Pre Proc Eval Procedure: Operation Date: 05/24/23 10:15 Proposed Procedures p Colonoscopy - Dayton Rivas MD Date/Time: 05/24/23 09:25 Surgeon: Dayton Rivas MD Pre Op Diagnosis: Noninfective gastroenteritis and colitis Patient Data Age: 38 Gender: F Height: 1.57 m Weight: 49.4 kg Last Vital Signs Temp 97.2 F L 05/24/23 09:06 Pulse 87 05/24/23 09:06 Resp 19 05/24/23 09:06 BP 107/79 05/24/23 09:06 Pulse Ox 99 05/24/23 09:06 O2 Del Method Room Air 05/24/23 09:06 Allergies Allergy/AdvReac Type Severity Reaction Status Date / Time Sulfa (Sulfonamide Allergy Intermediate Hives Verified 05/24/23 09:05 Antibiotics) Home Medications Medication Instructions Recorded Confirmed Type acetaminophen 325 mg tablet (Mapap 650 mg PO Q6H PRN Mild Pain (1-3) 11/27/21 05/09/23 Rx (acetaminophen)) Or Headache #30 tabs citalopram 20 mg tablet (Celexa) 10 mg PO BID 05/01/23 05/09/23 History dicyclomine 10 mg capsule 10 mg PO .every 6 hours PRN 05/16/23 05/24/23 Rx abdominal pain #360 caps Patient hx anesthesia problems: none Family hx anesthesia problems: none Results Review: All pre-operative results and documents have been reviewed as part of the pre-operative evaluation. [facility] Past Medical History Medical History (Updated 04/25/23 @ 10:52 by Vale Nava APRN) Abdominal cramping Anemia Anxiety Anxiety Asthma Asthma Chronic diarrhea Depression Family history of Crohn's disease Suprapubic discomfort Surgical History Surgical History No pertinent past surgical history Family History Family History Mother Family history of thyroid disease Hypertension Father Hypertension Family history of gastrointestinal disorder Social History Social History Years smoked: 6 Smoking status: Former smoker Tobacco type: cigarettes Second hand tobacco smoke exposure: No Smoking end date: 10/07/13 Alcohol intake: current Drinks per week: 3 Substance use: never Substance use type: marijuana Other substance usage details: OCC. [place] Lack of Transportation: No Lack of Food: Never True Current Housing: I Have Housing Concerned About Future Housing: No Difficulty Paying Gas/Electric Bills: No Difficulty Paying for Meds: No Currently Unemployed: No Education: Master's Degree or Higher Difficulty w/ Childcare or Family Care: No Living arrangements: with family Gender identity (if verbalized by the patient): Female Spiritual care concerns: No Anes - Eval Final PreProcedure Day of Procedure 05/24/23 09:25 Patient weight: normal Heart: regular rate and rhythm Lungs: clear to auscultation Airway: Mallampati scale Neurological: alert and oriented Last oral intake: >/= 8 hours ASA classification: II Emergent: no Anesthetic plan: proceed Anesthesia type and monitoring: general GIVS and standard monitoring Results Review: All pre-operative results and documents have been reviewed as part of the pre-operative evaluation. Informed Consent: The patient's anesthetic plan and its attendant risks and benefits were discussed with the patient/family/POA. Questions were solicited and answers provided to the satisfaction of the patient/family/POA.
--- NOTE | 2023-05-24 09:45 | WPDHPUPDATE1 ---
History and Physical Update Update Date/Time: 05/24/23 09:45 History and Physical has been reviewed, including an updated exam of the patient. There are NO changes in the patient's condition. Risks, benefits, and alternatives have been discussed and questions answered. Patient agrees to proceed with procedure.
[2023-05-24 10:05] VITALS: BP 90/61; PULSE 80; RESP 19; O2SAT 100
[2023-05-24 10:15] VITALS: BP 104/72; PULSE 83; RESP 16; O2SAT 100
[2023-05-24 10:25] VITALS: BP 105/77; PULSE 83; RESP 24; O2SAT 100
== END 2023-05-24 10:37 | disposition home or self-care (01) ==
PROVIDERS: PCP Family Medicine; Visit Provider Internal Medicine Gastroenterology
PROC: 0DJD8ZZ Inspection of Lower Intestinal Tract, Via Natural or Artificial Opening Endoscopic (ICD-10-PCS; CPT 45378; principal; 2023-05-24 10:15)
DX: R19.7 Diarrhea, unspecified (principal); Z83.79 Family history of other diseases of the digestive system; F32.A Depression, unspecified; D64.9 Anemia, unspecified; F41.9 Anxiety disorder, unspecified; J45.909 Unspecified asthma, uncomplicated; Z87.891 Personal history of nicotine dependence; F12.90 Cannabis use, unspecified, uncomplicated
CPT/HCPCS: 45380; 88305; J2704; J7120

== ENCOUNTER 2023-10-31 14:40 | Outpatient (CLI) | payer OTHER, SELFPAY ==
[2023-10-31 19:37] LABS: Alanine Aminotransferase 11 U/L (6-35); Albumin Level 3.9 g/dL (3.5-5.1); Alkaline Phosphatase 50 U/L (38-126); Anion Gap 6 mmol/L (8-16); Aspartate Amino Transferase 42 U/L (14-36); Bilirubin,Total 0.7 mg/dL (0.2-1.3); Blood Urea Nitrogen 11 mg/dL (7-17); Calcium 8.5 mg/dL (8.4-10.2); Carbon Dioxide 25 mmol/L (22-30); Chloride 105 mmol/L (98-107); Cholesterol 148 mg/dL (0-200); Estimated Glomerular Filt Rate > 60; Glucose 78 mg/dL (65-110); HDL Direct 59 mg/dL; Potassium 3.7 mmol/L (3.4-5.0); Sodium 136 mmol/L (137-145); Triglycerides 80 mg/dL (<150)
[2023-10-31 19:48] LABS: LDL Cholesterol Direct 79 mg/dL
== END 2023-10-31 14:41 | disposition home or self-care (01) ==
LOC: ANHGOSHLAB 14:42
PROVIDERS: PCP Family Medicine; Visit Provider Family Medicine
DX: Z13.228 Encounter for screening for other metabolic disorders (principal); Z13.220 Encounter for screening for lipoid disorders
CPT/HCPCS: 36415; 80053; 80061

== ENCOUNTER 2023-12-09 15:53 | Emergency (ER) | payer OTHER, SELFPAY ==
--- NOTE | 2023-12-09 15:59 | ED.URI ---
HPI - URI/Sore Throat General Chief Complaint: Upper Respiratory Infection Stated Complaint: SINUS CONGESTION Time Seen by Provider: 12/09/23 16:20 Source: patient and RN notes reviewed Mode of arrival: ambulatory Limitations: no limitations History of Present Illness HPI Narrative: 38 year old female presents with concern for 4 day history of sinus pressure, ear pain, cough, fever, aches. She has had several days if intermittent fever. She has been taking Tylenol. She has taken several negative COVID test at home, or kids of similar symptoms, they have been negative for flu and strep. MD elicited complaint: cough and sore throat Related Data Home Medications Medication Instructions Recorded Confirmed citalopram 20 mg tablet 20 mg PO DAILY 12/09/23 12/09/23 dicyclomine 10 mg capsule 10 mg PO DIRECTED 12/09/23 12/09/23 etonogestrel 0.12 mg-ethinyl 1 vag ring vaginal DIRECTED 12/09/23 12/09/23 estradiol 0.015 mg/24 hr vaginal ring (NuvaRing) Allergies Allergy/AdvReac Type Severity Reaction Status Date / Time Sulfa (Sulfonamide Allergy Intermediate Hives Verified 12/09/23 16:01 Antibiotics) Review of Systems Review of Systems: CONSTITUTIONAL: Reports malaise, fever. EYES: Denies visual changes, redness, or discharge. ENT: Reports rhinorrhea, congestion, sinus pain, otalgia CARDIOVASCULAR: Denies chest pain, palpitations, or edema. RESPIRATORY: Reports cough. Denies dyspnea. GASTROINTESTINAL: Denies abdominal pain, nausea, vomiting, diarrhea SKIN: Denies rash or itching. MUSCULOSKELETAL: Reports myalgia. NEUROLOGIC: Denies headache. All systems reviewed & are unremarkable except as noted in HPI and below PMFSH Past Medical History Medical History Abdominal cramping Anemia Anxiety Anxiety Asthma Asthma Chronic diarrhea Depression Family history of Crohn's disease Suprapubic discomfort Surgical History Surgical History No pertinent past surgical history Family History Family History Mother Family history of thyroid disease Hypertension Father Hypertension Family history of gastrointestinal disorder Social History Social History Years smoked: 6 Smoking status: Former smoker Tobacco type: cigarettes Second hand tobacco smoke exposure: No Smoking end date: 10/07/13 Alcohol intake: former Substance use: former Substance use type: marijuana Do You Feel Safe in your Home?: Yes Lack of Transportation: No Lack of Food: Never True Current Housing: I Have Housing Concerned About Future Housing: No Difficulty Paying Gas/Electric Bills: No Difficulty Paying for Meds: No Currently Unemployed: No Education: Master's Degree or Higher Difficulty w/ Childcare or Family Care: No Living arrangements: with family Gender identity (if verbalized by the patient): Female Spiritual care concerns: No Comments At time of signature, agree with nursing past medical, surgical, social and family history. There is no relevant family history pertinent to the presenting complaint Exam Narrative: GENERAL: Well-appearing, well-nourished, and in no acute distress. HEAD: Normocephalic EYES: PERRLA, conjunctivae clear ENT: Nares clear, turbinates edematous and erythematous, clear discharge. Mucous membranes moist. TM pearly ro with dull light reflex bilaterally; no tragal tenderness. Oropharynx not erythematous without lesions. Tonsils not enlarged and without exudate, no drooling, no hoarseness, no trismus, uvula midline. NECK: Supple. No lymphadenopathy CHEST: Clear to auscultation, breath sounds equal. No wheezing, rhonchi, rales, or stridor. No respiratory distress, speaks in full sentences. HEART: Regular rate and rhythm. No murmur hear
[2023-12-09 16:03] VITALS: BP 121/83; PULSE 113; RESP 16; TEMP 38.2; O2SAT 100
== END 2023-12-09 16:27 | disposition home or self-care (01) ==
PROVIDERS: Emergency Provider Nurse Practitioner; PCP Family Medicine
DX: B34.9 Viral infection, unspecified (principal); Z87.891 Personal history of nicotine dependence; J45.909 Unspecified asthma, uncomplicated; F41.9 Anxiety disorder, unspecified; F32.A Depression, unspecified
CPT/HCPCS: 99213; G0463

== ENCOUNTER 2024-12-05 07:41 | Outpatient (CLI) | payer OTHER, SELFPAY ==
[2024-12-05 08:48] LABS: Basophils Absolute Auto 0.1 K/mm3 (0.0-0.1); Basophils Percent Auto 0.8 % (0.2-1.2); Eosinophils Absolute Auto 0.3 K/mm3 (0-0.3); Eosinophils Percent Auto 4.6 % (0-4.4); Hematocrit 38.2 % (37.0-47.0); Hemoglobin 12.8 g/dL (12.0-15.0); Immature Granulocyte Absolute 0.02 K/mm3 (0.00-0.031); Immature Granulocyte Percent A 0.3 % (0-0.5); Lymphocytes Absolute Auto 2.05 K/mm3 (0.9-3.2); Lymphocytes Percent Auto 32.6 % (18.3-44.2); Mean Corpuscular HGB Conc 33.5 g/dl (32-36); Mean Corpuscular Hemoglobin 30.3 pg (26-34); Mean Corpuscular Volume 90.3 fl (80-100); Monocytes Absolute Auto 0.5 K/mm3 (0.1-0.6); Monocytes Percent Auto 7.5 % (2.6-8.5); Neutrophils Absolute Auto 3.4 K/mm3 (1.3-6.7); Neutrophils Percent Auto 54.2 % (45.5-73.1); Platelet Count Result 274 k/mm3 (150-375); Red Blood Count 4.23 M/mm3 (4.2-5.4); Red Cell Distribution Width 12.5 % (11.5-14.5); White Blood Count 6.3 K/mm3 (4.5-10.0)
[2024-12-05 08:52] LABS: Alanine Aminotransferase 14 U/L (6-35); Albumin Level 4.1 g/dL (3.5-5.1); Alkaline Phosphatase 45 U/L (38-126); Anion Gap 7 mmol/L (4-12); Aspartate Amino Transferase 22 U/L (14-36); Bilirubin,Total 0.7 mg/dL (0.2-1.3); Blood Urea Nitrogen 13 mg/dL (7-17); Calcium 8.8 mg/dL (8.4-10.2); Carbon Dioxide 25 mmol/L (22-30); Chloride 107 mmol/L (98-107); Cholesterol 146 mg/dL (0-200); Estimated Glomerular Filt Rate > 60; Glucose 86 mg/dL (65-110); HDL Direct 59 mg/dL; Potassium 4.2 mmol/L (3.4-5.0); Sodium 139 mmol/L (137-145); Triglycerides 63 mg/dL (<150)
[2024-12-05 09:03] LABS: LDL Cholesterol Direct 64 mg/dL
[2024-12-05 10:16] LABS: Hemoglobin A1C 4.6 % (<5.7)
== END 2024-12-05 07:42 | disposition home or self-care (01) ==
LOC: ANHLAB 07:42
PROVIDERS: PCP Family Medicine; Visit Provider Family Medicine
DX: Z00.00 Encounter for general adult medical examination without abnormal findings (principal); E78.5 Hyperlipidemia, unspecified; E55.9 Vitamin D deficiency, unspecified; E11.9 Type 2 diabetes mellitus without complications; F41.9 Anxiety disorder, unspecified; K52.9 Noninfective gastroenteritis and colitis, unspecified; E53.8 Deficiency of other specified B group vitamins
CPT/HCPCS: 36415; 80053; 80061; 82306; 82607; 83036; 84443; 85025